=== PATIENT | male | born 1955 | race Caucasian/White ===

== ENCOUNTER 2021-10-03 02:36 | Emergency (ER) | payer MEDICARE, OTHER ==
[~2021-10-03] VITALS: Ht 170.2 cm; Wt 86.2 kg
[~2021-10-03 02:36] MED LIST: ASPIRIN BUFFER325 MG PO; PANTOPRAZOLE PO; SIMVASTATIN20 MG PO; TRIAMTERENE-HCTZ1 EA PO; Z.0.AMBIEN10 MG PO; Z.0.COREG12.5 MG PO; Z.0.LOSARTAN POTASS5 PO; Z.0.PLAVIX75 MG PO; Z.0.SIMVASTATIN40 MG PO; Z.2.TRIAMTERENE-HC1 PO; [UNRECOGNIZED DRUG - OTHER]
== END 2021-10-03 03:42 | disposition home or self-care (01) ==
LOC: ER 02:40
DX: S00.83XA Contusion of other part of head, initial encounter (principal); S51.812A Laceration without foreign body of left forearm, initial encounter; W01.0XXA Fall on same level from slipping, tripping and stumbling without subsequent striking against object, initial encounter; Y92.89 Other specified places as the place of occurrence of the external cause; I48.91 Unspecified atrial fibrillation
CPT/HCPCS: 70450; 99284